=== PATIENT | female | born 1950 | race Caucasian/White ===

== ENCOUNTER 2019-04-24 16:52 | Inpatient (IN) | payer OTHER ==
[~2019-04-24] VITALS: Ht 157.5 cm; Wt 61.2 kg
[2019-06-04] MEDS ORDERED: WELLBUTRIN SR200 MG PO (16:27)
[2019-06-04] MEDS ORDERED: SYNTHROID50 MCG PO (16:27)
[2019-06-04] MEDS ORDERED: SEROQUEL50 MG PO (16:28)
[2019-06-04] MEDS ORDERED: PRAVASTATIN SOD10 MG PO (16:28)
[2019-06-13] MEDS ORDERED: HYOSCYAMINE0.125 M1 SL (09:26)
[2019-06-13] MEDS ORDERED: NORFLEX100MG PO (09:27)
[2019-06-13] MEDS ORDERED: ANTI-GAS166 MG PO (09:27)
== END 2019-06-13 10:39 | disposition home or self-care (01) | DRG 331 ==
LOC: O/R 06-11 06:10 → SURH 06-11 06:10 → SURG 06-11 07:00 → SURH 06-11 14:32 → SURG 06-11 15:30 → SURH 06-13 10:39
PROVIDERS: Student in an Organized Health Care Education/Training Program; ADMIT Surgery
PROC: 0DSP4ZZ Reposition Rectum, Percutaneous Endoscopic Approach (ICD-10-PCS; principal; 2019-06-11 07:00)
PROC: 0USG4ZZ Reposition Vagina, Percutaneous Endoscopic Approach (ICD-10-PCS; 2019-06-11 07:00)
DX: K62.3 Rectal prolapse (principal); N81.2 Incomplete uterovaginal prolapse; R15.2 Fecal urgency; K58.1 Irritable bowel syndrome with constipation; K66.0 Peritoneal adhesions (postprocedural) (postinfection)

== ENCOUNTER 2023-05-16 05:20 | Day surgery (SDC) | payer OTHER ==
[~2023-05-16] VITALS: Ht 160 cm; Wt 65.8 kg
[~2023-05-16 05:20] MED LIST: ABILIFY5 MG PO; ANTI-GAS166 MG PO; COZAAR50 MG PO; HYOSCYAMINE0.125 M1 SL; NORFLEX100MG PO; PRAVASTATIN SOD10 MG PO; PREVASTATIN PO; PROTONIX40 MG PO; SEROQUEL50 MG PO; SYNTHROID50 MCG PO; WELLBUTRIN SR200 MG PO
[2023-05-16] MEDS ORDERED: TRAM1TAB98 PO (09:40)
[2023-05-16] MEDS ORDERED: KETO10TA2 PO (09:41)
== END 2023-05-16 12:35 | disposition home or self-care (01) ==
LOC: CIR.AMB 05:20
PROVIDERS: ATTEND Surgery
DX: K62.3 Rectal prolapse (principal); K58.1 Irritable bowel syndrome with constipation; K92.2 Gastrointestinal hemorrhage, unspecified; I10 Essential (primary) hypertension; Z20.822 Contact with and (suspected) exposure to COVID-19; Z88.0 Allergy status to penicillin

== ENCOUNTER 2024-11-05 05:38 | Day surgery (SDC) | payer OTHER ==
[2024-10-29 13:26] VITALS: BP 140/90
[~2024-11-05] VITALS: Ht 160 cm; Wt 59.9 kg
[~2024-11-05 05:38] MED LIST changes: +KETO10TA2 PO; +TRAM1TAB98 PO
[2024-11-05] MEDS ORDERED: METRONIDAZOLE/SODIUM CHLORIDE 500 MG/100 ML PIGGYBACK IV ONE (06:32)
[2024-11-05] MEDS ORDERED: BUPIVACAINE HCL/MPF 0.5% 30ML VIAL ONE (07:28)
[2024-11-05] MEDS ORDERED: DIBUCAINE 30 GM TUBE ONE (07:28)
[2024-11-05] MEDS ORDERED: HEMOSTATIC MATRIX 1 KIT KIT TOP ONE (07:28)
[2024-11-05] MEDS ORDERED: POVIDONE-IODINE 118 ML BOTT TOP ONE (07:28)
[2024-11-05] MEDS ORDERED: LIDOCAINE HCL 1%/EPINEPHRINE 20ML VIAL IJ ONE (07:29)
[2024-11-05] MEDS ORDERED: levoFLOXacin IN DEXTROSE 5 % 5 MG/ML PIGGYBAG IV ONE (08:00)
[2024-11-05] MEDS ORDERED: TRAM1TAB98 PO (11:19)
[2024-11-05] MEDS ORDERED: CELECOXIB200 MG PO (11:19)
[2024-11-05] MEDS ORDERED: INTESTINEX680 M1 PO (11:19)
[2024-11-05] MEDS ORDERED: NUPERCAINAL56.7 GM TOP (11:19)
[2024-11-05] MEDS ORDERED: MORPHINE SULFATE 4 MG/ML VIAL IV ONE (11:40)
== END 2024-11-05 12:45 | disposition home or self-care (01) ==
LOC: CIR.AMB 05:38
PROVIDERS: ATTEND Surgery
DX: K62.2 Anal prolapse (principal); K62.4 Stenosis of anus and rectum; K58.1 Irritable bowel syndrome with constipation; K92.2 Gastrointestinal hemorrhage, unspecified; R15.9 Full incontinence of feces; E78.5 Hyperlipidemia, unspecified; E03.8 Other specified hypothyroidism; F42.9 Obsessive-compulsive disorder, unspecified; K21.9 Gastro-esophageal reflux disease without esophagitis; Z88.6 Allergy status to analgesic agent; Z88.0 Allergy status to penicillin

== ENCOUNTER 2025-04-22 06:00 | Day surgery (SDC) | payer OTHER ==
[2025-04-14 13:27] VITALS: BP 150/90
[~2025-04-22] VITALS: Ht 160 cm; Wt 59.0 kg
[~2025-04-22 06:00] MED LIST changes: +CELECOXIB200 MG PO; +INTESTINEX680 M1 PO; +NUPERCAINAL56.7 GM TOP
[2025-04-22] MEDS ORDERED: VANCOMYCIN HCL 1,000 MG VIAL ONE (07:51)
[2025-04-22] MEDS ORDERED: BUPIVACAINE HCL/MPF 0.5% 30ML VIAL ONE (10:32)
[2025-04-22] MEDS ORDERED: LIDOCAINE HCL 1%/EPINEPHRINE 20ML VIAL IJ ONE (10:32)
[2025-04-22] MEDS ORDERED: BACTRIM 400-801 EACH PO (11:05)
[2025-04-22] MEDS ORDERED: TRAMADOL HCL50 MG PO (11:06)
== END 2025-04-22 13:40 | disposition home or self-care (01) ==
LOC: CIR.AMB 06:00
PROVIDERS: ATTEND Surgery
DX: R15.9 Full incontinence of feces (principal); K58.1 Irritable bowel syndrome with constipation; Z88.0 Allergy status to penicillin; Z88.5 Allergy status to narcotic agent; K62.2 Anal prolapse
CPT/HCPCS: 64581; 95972; C1778

== ENCOUNTER 2025-05-06 06:00 | Day surgery (SDC) | payer OTHER ==
[~2025-05-06 06:00] MED LIST changes: +BACTRIM 400-801 EACH PO; +TRAMADOL HCL50 MG PO
[2025-05-06] MEDS ORDERED: LIDOCAINE HCL 1%/EPINEPHRINE 20ML VIAL IJ ONE (08:15)
[2025-05-06] MEDS ORDERED: BUPIVACAINE HCL 30 ML VIAL IJ ONE (08:15)
[2025-05-06] MEDS ORDERED: CEFAZOLIN SODIUM 1,000 MG VIAL IV SCH (08:15)
[2025-05-06] MEDS ORDERED: TRAM1TAB98 PO (08:30)
== END 2025-05-06 10:20 | disposition home or self-care (01) ==
LOC: CIR.AMB 06:00
PROVIDERS: ATTEND Surgery
DX: R15.9 Full incontinence of feces (principal); K58.1 Irritable bowel syndrome with constipation; Z88.0 Allergy status to penicillin; Z88.8 Allergy status to other drugs, medicaments and biological substances
CPT/HCPCS: 64590; 95972; C1767

== ENCOUNTER 2025-06-11 11:10 | Outpatient (CLI) | payer OTHER | END 2025-06-11 11:12 | disposition home or self-care (01) | LOC: SONOGRAMA 11:10 | PROVIDERS: ATTEND Pathology Anatomic Pathology & Clinical Pathology | DX: E04.1 Nontoxic single thyroid nodule (principal) ==